=== PATIENT | female | born 1940 | race Caucasian/White ===

== ENCOUNTER 2023-01-31 05:51 | Day surgery (SDC) | payer MEDICARE, BC ==
[~2023-01-31] VITALS: Ht 162.6 cm; Wt 87.2 kg
[2023-01-31 06:10] VITALS: BP 142/73
[2023-01-31] MEDS ORDERED: MIDAZolam 1 MG/ML 5ML VIAL ONE (06:36)
[2023-01-31] MEDS ORDERED: fentaNYL/PF 50MCG/1 ML 2ML syringe ONE (06:36)
[2023-01-31] MEDS ORDERED: LIDOcaine Viscous 15ml cup ONE (06:36)
[2023-01-31] MEDS ORDERED: LOSA-416 PO (06:43)
[2023-01-31] MEDS ORDERED: PANT-47 PO (06:43)
[2023-01-31] MEDS ORDERED: CHOL400C2 (06:43)
[2023-01-31] MEDS ORDERED: OXYB5TAB16 PO (06:43)
[2023-01-31] MEDS ORDERED: ATOR20TA66 PO (06:43)
[2023-01-31] MEDS ORDERED: RALO60TA13 PO (06:43)
[2023-01-31 07:25] VITALS: BP 139/55
[2023-01-31 07:35] VITALS: BP 137/68
[2023-01-31 07:45] VITALS: BP 149/74
[2023-01-31 07:55] VITALS: BP 140/74
== END 2023-01-31 08:00 | disposition home or self-care (01) ==
LOC: GI LAB 05:51
PROVIDERS: ATTEND Surgery
DX: K44.9 Diaphragmatic hernia without obstruction or gangrene (principal); I10 Essential (primary) hypertension; Z87.442 Personal history of urinary calculi; Z79.899 Other long term (current) drug therapy
CPT/HCPCS: 43235; G0500; J2250; J3010; J7030; Z7512; 99152; A4620

== ENCOUNTER 2023-03-16 05:31 | Inpatient (IN) | payer MEDICARE, BC ==
[2023-03-15 14:09] LABS: BASOPHILS # (AUTO) 0.1 X10'3 (0-0.2); BASOPHILS % (AUTO) 0.7 % (0-1); EOSINOPHILS # (AUTO) 0.1 X10'3 (0-0.9); EOSINOPHILS % (AUTO) 1.6 % (0-6); LYMPHOCYTES # (AUTO) 1.8 X10'3 (1.1-4.8); LYMPHOCYTES % (AUTO) 23.8 % (21-51); MEAN CORPUSCULAR HEMOGLOBIN 32.2 PG (27.0-31.0); MEAN CORPUSCULAR HGB CONC 33.2 g/dL (33.0-36.5); MEAN CORPUSCULAR VOLUME 96.8 FL (78-98); MEAN PLATELET VOLUME 9.2 FL (7.4-10.4); MONOCYTES # (AUTO) 0.6 X10'3 (0-0.9); MONOCYTES % (AUTO) 8.3 % (2-12); NEUTROPHILS # (AUTO) 4.9 X10'3 (1.8-7.7); NEUTROPHILS % (AUTO) 65.6 % (42-75); PRE OP HEMATOCRIT 36.9 % (35.0-45.0); PRE OP HEMOGLOBIN 12.3 g/dL (12.0-16.0); PRE OP PLATELET COUNT 218 X10'3 (140-440); PRE OP WHITE BLOOD COUNT 7.5 10'3 (4.8-10.8); RED BLOOD COUNT 3.82 X10'6 (4.20-5.60); RED CELL DISTRIBUTION WIDTH 13.5 % (11.5-14.5)
[2023-03-15 14:18] LABS: PRE OP PROTIME 10.9 SECONDS (9.0-12.0)
[2023-03-15 14:19] LABS: ALBUMIN 3.9 G/DL (3.4-5.0); ALBUMIN/GLOBULIN RATIO 1.1 (1.1-1.5); ALKALINE PHOSPHATASE 36 IU/L (46-116); BLOOD UREA NITROGEN 26 MG/DL (7-18); BUN/CREATININE RATIO 20.5 (10.0-20.0); CALCIUM 9.4 MG/DL (8.5-10.1); CHLORIDE 105 MMOL/L (99-107); CREATININE 1.27 MG/DL (0.40-0.90); PRE OP ALT 21 U/L (30-65); PRE OP ANION GAP 9 (8-16); PRE OP AST 24 U/L (10-37); PRE OP BILIRUB, TOTAL 0.5 MG/DL (0.0-1.0); PRE OP GLUCOSE 95 MG/DL (70-104); PRE OP POTASSIUM 4.3 MMOL/L (3.4-5.1); PRE OP SODIUM 140 MMOL/L (135-145); TOTAL CARBON DIOXIDE 26.1 MMOL/L (24-32); TOTAL PROTEIN 7.6 G/DL (6.4-8.2); eCRCL 29 ML/MIN; eGFR 40 ML/MIN
[2023-03-15 14:30] LABS: BILIRUBIN,URINE NEGATIVE (Neg); CLARITY,URINE CLEAR (Clear); COLOR,URINE YELLOW (Yellow); GLUCOSE, URINE NEGATIVE (Neg); KETONES,URINE NEGATIVE (Neg); LEUKOCYTE ESTERASE ,URINE NEGATIVE (Neg); NITRITES, URINE NEGATIVE (Neg); OCCULT BLOOD,URINE NEGATIVE (Neg); PROTEIN,URINE NEGATIVE (Neg); UROBILINOGEN,URINE 0.2 E.U/dL (0.2-1.0)
[2023-03-15 14:31] LABS: HEMOGLOBIN A1C 5.7 % (4.5-6.2)
[2023-03-15 15:00] LABS: UA COLLECTION TYPE CLN CATCH MIDSTREAM
[~2023-03-16] VITALS: Ht 154.9 cm; Wt 99.4 kg
[2023-03-16] VITALS (29 sets, daily range): BP systolic 65–176; BP diastolic 33–85; PULSE 59–132; RESP 10–15; TEMP 94.3–97; O2SAT 96–100
[~2023-03-16 05:31] MED LIST: ASPI-1265 PO; ATOR40TA71 PO; CHOL400C2; DEXTROSE 15 GM of carb/4 tabs (each vial/BOTTLE has 4 tablets) PO PRN; DOCUMENT DATE & TIME OF BETA-BLOCKER PO ONE; FERR324T3 PO; Insulin Reg/NS 100units/100mL 100 ML IV SCH; LORazepam 2 mg/ml vial IV ONE; LOSA25TA41 PO; METO-395 PO; MULT-1085 PO; OSC500T PO; OXYB5TAB16 PO; PANT-47 PO; RALO60TA13 PO; UBID100C16 PO; albuterol 2.5 MG/3 ML nebule NEB PRN; cefazolin 2gm/D5W 100mL 100 ML IV ONE; dextrose 50%-water 50ml dispensing syringe IV PRN; famotidine 20mg tablet PO ONE; glucagon, human recombinant 1mg kit SUBCUT PRN; metoprolol tartrate 12.5mg (1/2 tablet) PO ONE; mupirocin 2% nasal ointment 1gm UD NS ONE; ringers solution, lacted 1,000 ML IV SCH
[2023-03-16] MEDS ORDERED: ceFAZolin 1000mg inj ONE ×6 (07:29→18:37)
[2023-03-16] MEDS ORDERED: BUPIVAcaine 0.5% inj/PF 30 ML ONE (07:29)
[2023-03-16] MEDS ORDERED: epiNEPHrine 1 mg/ml inj ONE ×2 (07:29→18:50)
[2023-03-16] MEDS ORDERED: epiNEPHrine 1 MG/ML 1 ml ampule **BRONCH ONLY SQ ONE (07:30)
[2023-03-16] MEDS ORDERED: BUPIVAcaine 0.5% inj/PF 30 ml vial IJ ONE (07:30)
[2023-03-16] MEDS ORDERED: VANCOMYCIN 1,500MG inj. 1,500 MG in normal saline 500ml IV soln 300 ML IV ONE (07:45)
[2023-03-16] MEDS ORDERED: nitroGLYCERIN in D5W 50mg/250ml (Tridil) infusion IV ONE (07:46)
[2023-03-16] MEDS ORDERED: isoflurane 100ml inhalation liquid IH ONE (07:46)
[2023-03-16] MEDS ORDERED: NORepinephrine 8 MG in NS 250 ML BAG (32 mcg/ml) IV ONE (07:46)
[2023-03-16] MEDS ORDERED: protamine sulf. 10mg/ml inj. IV ONE (07:46)
[2023-03-16] MEDS ORDERED: heparin 1,000 units/ml 10ml inj ONE ×2 (07:46→08:00)
[2023-03-16] MEDS ORDERED: LIDOcaine 2% (20mg/ml) 5ml vial ONE ×2 (07:46→07:51)
[2023-03-16] MEDS ORDERED: MIDAZolam 1mg/ml 10ml vial ONE (07:47)
[2023-03-16] MEDS ORDERED: rocuronium 10mg/ml inj IV ONE ×7 (07:51→19:23)
[2023-03-16] MEDS ORDERED: 0.9 % SODIUM CHLORIDE 10 ML VIAL ONE ×3 (07:51→18:37)
[2023-03-16] MEDS ORDERED: phenylephrine 10mg/ml inj. -priapism dosing ONE (07:51)
[2023-03-16] MEDS ORDERED: dexamethasone sod phosphate 4mg/ml inj. ONE (07:51)
[2023-03-16] MEDS ORDERED: propofol inj 20 ML IV ONE (07:51)
[2023-03-16] MEDS ORDERED: ondansetron/PF 4mg/2ml inj ONE (07:51)
[2023-03-16] MEDS ORDERED: SUfentanil 50mcg/ml 1ml amp IV ONE (07:51)
[2023-03-16] MEDS ORDERED: midazolam 1 mg/ML 2ml injection IV PRN (07:55)
[2023-03-16] MEDS ORDERED: FENTANYL-0.9 % NACL/PF 100 ML IV PRN (07:55)
[2023-03-16] MEDS ORDERED: fentaNYL/PF 50MCG/1 ML 2ML syringe IV PRN (07:55)
[2023-03-16] MEDS ORDERED: propofol 1000mg/100ml bottle 100 ML IV SCH (07:55)
[2023-03-16] MEDS ORDERED: LIDOcaine 2% (20 mg/ml) 5ml cardiac syringe ONE (08:00)
[2023-03-16] MEDS ORDERED: heparin 10,000 units/1 ML INJ ONE ×2 (08:00)
[2023-03-16] MEDS ORDERED: epiNEPHrine 0.1mg/ml 10ml syringe ONE (08:00)
[2023-03-16] MEDS ORDERED: methylPREDNISolone sod succ 1000mg vial ONE (08:00)
[2023-03-16] MEDS ORDERED: calcium chloride 100 MG/1 ML inj IV ONE (08:00)
[2023-03-16] MEDS ORDERED: mannitol 12.5gm/50mL VIAL IV ONE (08:00)
[2023-03-16] MEDS ORDERED: sod chloride 0.9% 10ml flush syringe IV ONE (08:00)
[2023-03-16] MEDS ORDERED: aminocaproic acid 250 MG/1 ML inj. ONE (08:00)
[2023-03-16] MEDS ORDERED: NORepinephrine 1 mg/ml inj IV ONE (08:00)
[2023-03-16] MEDS ORDERED: MAGNESIUM SULFATE 4 MEQ/ML (5gm/10ml) injection ONE (08:00)
[2023-03-16] MEDS ORDERED: albumin (human) 25% 100 ML IV solution IV ONE (08:00)
[2023-03-16] MEDS ORDERED: sodium bicarbonate (8.4%) 1 mEq/ml syringe ONE (08:00)
[2023-03-16] MEDS ORDERED: albumin (Human) 5% 250ml 250 ML IV ONE ×2 (09:06→11:12)
[2023-03-16 09:10] LABS: ABG BASE EXCESS -0.2 mmol/L (-2.0-2.0); ABG HCO3 21.6 mmol/L (22.0-26.0); ABG OXYGEN SATURATION 99.4 % (94-97); ABG PCO2 26.7 mmHg (32.0-45.0); ABG PH 7.526 (7.350-7.450); ABG PO2 242.7 mmHg (75.0-100.0); CL (ABG) 107 mmol/L (99-107); FCOHb 0.3 % (0.0-3.9); FHHb 0.6 % (0.0-5.0); FMetHb 0.3 % (0.0-1.5); FO2Hb 98.8 % (94-97); GLUCOSE (ABG) 117 mg/dl (70-104); IONIZED CA (ABG) 1.11 mmol/L (1.10-1.30); K (ABG) 3.9 mmol/L (3.5-5.1); TOTAL HEMOGLOBIN 10.7 G/dl (12.0-16.0)
[2023-03-16 09:48] LABS: ABG BASE EXCESS -1.9 mmol/L (-2.0-2.0); ABG HCO3 20.8 mmol/L (22.0-26.0); ABG OXYGEN SATURATION 99.7 % (94-97); ABG PCO2 28.6 mmHg (32.0-45.0); ABG PH 7.479 (7.350-7.450); ABG PO2 389.6 mmHg (75.0-100.0); CL (ABG) 106 mmol/L (99-107); FCOHb 0.1 % (0.0-3.9); FHHb 0.3 % (0.0-5.0); FMetHb 0.3 % (0.0-1.5); FO2Hb 99.3 % (94-97); GLUCOSE (ABG) 115 mg/dl (70-104); K (ABG) 3.8 mmol/L (3.5-5.1); TOTAL HEMOGLOBIN 10.3 G/dl (12.0-16.0)
[2023-03-16 10:58] LABS: ABG BASE EXCESS -2.3 mmol/L (-2.0-2.0); ABG HCO3 19.2 mmol/L (22.0-26.0); ABG OXYGEN SATURATION 99.8 % (94-97); ABG PCO2 23.3 mmHg (32.0-45.0); ABG PH 7.533 (7.350-7.450); ABG PO2 471.3 mmHg (75.0-100.0); CL (ABG) 108 mmol/L (99-107); FCOHb 0.1 % (0.0-3.9); FHHb 0.2 % (0.0-5.0); FMetHb 0.3 % (0.0-1.5); FO2Hb 99.4 % (94-97); GLUCOSE (ABG) 124 mg/dl (70-104); IONIZED CA (ABG) 1.08 mmol/L (1.10-1.30); K (ABG) 3.6 mmol/L (3.5-5.1)
[2023-03-16 11:00] LABS: ACTIVATED CLOTTING TIME 146 SEC (101-148)
[2023-03-16] MEDS ORDERED: potassium Cl 40MEQ/1/2NS 520ml 520 ML IV PRN (11:20)
[2023-03-16] MEDS ORDERED: bisacodyl 10mg suppository rectal RC PRN (11:20)
[2023-03-16] MEDS ORDERED: Insulin Reg/NS 100units/100mL 100 ML IV SCH (11:20)
[2023-03-16] MEDS ORDERED: sodium phosphate inj. 15 MMOL in dextrose 5%-water 250 ML IV PRN (11:20)
[2023-03-16] MEDS ORDERED: sodium phosphate inj. 30 MMOL in dextrose 5%-water 250 ML IV PRN (11:20)
[2023-03-16] MEDS ORDERED: magnesium hydroxide 30ml (MOM) UD suspension PO PRN (11:20)
[2023-03-16] MEDS ORDERED: dextrose 50%-water 50ml dispensing syringe IV PRN (11:20)
[2023-03-16] MEDS ORDERED: insulin glargine (Lantus) pen - multi-dose SQ PRN (11:20)
[2023-03-16] MEDS ORDERED: mineral oil 133ml enema RC PRN (11:20)
[2023-03-16] MEDS ORDERED: niCARDipine-NS 40mg/200ml IVPB 200 ML IV PRN (11:20)
[2023-03-16] MEDS ORDERED: HYDROcodone/acetaminophen 10/325mg tab PO PRN (11:20)
[2023-03-16] MEDS ORDERED: ondansetron/PF 4mg/2ml inj IV PRN (11:20)
[2023-03-16] MEDS ORDERED: potassium Cl 20 mEq SR tablet PO PRN (11:20)
[2023-03-16] MEDS ORDERED: magnesium 4gm in 100ml NS 100 ML IV PRN (11:20)
[2023-03-16] MEDS ORDERED: metoclopramide 5 mg/ml inj IV PRN (11:20)
[2023-03-16] MEDS ORDERED: potassium CL 10mEq/100ml bag 100 ML IV PRN (11:20)
[2023-03-16] MEDS ORDERED: potassium Cl 40MEQ/270ML bag 250 ML IV PRN (11:20)
[2023-03-16] MEDS ORDERED: acetaminophen 325mg tablet PO PRN (11:20)
[2023-03-16] MEDS ORDERED: morphine 4 MG/ML inj SYRINge IV PRN (11:20)
--- NOTE | 2023-03-16 12:00 | NUR ---
Received to room , accompanied by Tommy Pitt, PAC and surgical crew. Placed on ventilator, to assistant to the vice president, arterial line and PA line pressure zeroed & monitored. Chest tubes to suction at 20 cm. Napoles cath to gravity drainage. Dressings are dry and intact. See assessment record. All vasoactive drugs are infusing via central line.
[2023-03-16] MEDS: sodium chloride 0.45% 1,000 ML IV SCH (12:07)
[2023-03-16 12:12] LABS: ABG BASE EXCESS -2.3 mmol/L (-2.0-2.0); ABG HCO3 20.4 mmol/L (22.0-26.0); ABG PH (T) 7.523 (7.350-7.450); ABG PO2 (T) 417.3 mmHg (75.0-100.0); FCOHb 0.2 % (0.0-3.9); FMetHb 0.2 % (0.0-1.5); FO2Hb 98.6 % (94-97); MODE VENT - SIMV; PATIENT TEMPERATURE 34.8; PEEP 5 cm H2O; RESPIRATORY RATE 14 b/min; TIDAL VOLUME 400 mL; TOTAL HEMOGLOBIN 8.5 G/dl (12.0-16.0)
[2023-03-16] MEDS: albumin (Human) 5% 250ml 250 ML IV PRN ×4 (12:41→22:53)
[2023-03-16] MEDS: gabapentin 300mg capsule PO SCH ×2 (12:41→22:22)
[2023-03-16 12:43] LABS: APTT 33 SECONDS (22-32); INR 1.3 INR; PROTHROMBIN TIME 13.8 SECONDS (9.0-12.0)
[2023-03-16 12:46] LABS: ALANINE AMINOTRANSFERASE 14 U/L (12-78); ALBUMIN 2.5 G/DL (3.4-5.0); ALBUMIN/GLOBULIN RATIO 1.3 (1.1-1.5); ALKALINE PHOSPHATASE 25 IU/L (46-116); ANION GAP 6 (8-16); ASPARTATE AMINO TRANSFERASE 21 U/L (10-37); BILIRUBIN,TOTAL 0.4 MG/DL (0.1-1.0); BLOOD UREA NITROGEN 22 MG/DL (7-18); BUN/CREATININE RATIO 24.2 (10.0-20.0); CREATININE 0.91 MG/DL (0.40-0.90); GLUCOSE 124 MG/DL (70-104); MAGNESIUM 1.5 MG/DL (1.5-2.4); PHOSPHORUS 2.2 MG/DL (2.3-4.5); POTASSIUM 3.4 MMOL/L (3.5-5.1); SODIUM 141 MMOL/L (135-145); TOTAL CARBON DIOXIDE 22.6 MMOL/L (24-32); TOTAL PROTEIN 4.4 G/DL (6.4-8.2); eCRCL 35 ML/MIN; eGFR 59 ML/MIN
[2023-03-16 12:48] LABS: BASOPHILS % (AUTO) 0.5 % (0-1); EOSINOPHILS # (AUTO) 0.2 X10'3 (0-0.9); EOSINOPHILS % (AUTO) 2.2 % (0-6); HEMATOCRIT 23.4 % (35.0-45.0); HEMOGLOBIN 7.8 g/dl (12.0-16.0); LYMPHOCYTES # (AUTO) 1.5 X10'3 (1.1-4.8); LYMPHOCYTES % (AUTO) 20.8 % (21-51); MEAN CORPUSCULAR HEMOGLOBIN 32.3 PG (27.0-31.0); MEAN CORPUSCULAR HGB CONC 33.5 g/dL (33.0-36.5); MEAN CORPUSCULAR VOLUME 96.3 FL (78-98); MEAN PLATELET VOLUME 8.2 FL (7.4-10.4); MONOCYTES # (AUTO) 0.4 X10'3 (0-0.9); MONOCYTES % (AUTO) 6.1 % (2-12); NEUTROPHILS # (AUTO) 4.9 X10'3 (1.8-7.7); NEUTROPHILS % (AUTO) 70.4 % (42-75); PLATELET COUNT 159 X10'3 (140-440); RED BLOOD COUNT 2.43 X10'6 (4.20-5.60)
[2023-03-16 12:55] LABS: CALCIUM 6.9 MG/DL (8.5-10.1); CHLORIDE 112 MMOL/L (99-107)
--- NOTE | 2023-03-16 13:50 | NUR ---
Nutrition consult: Per EMR pt remains intubated s/p CABG x 2 today. Pt would benefit from post CABG nutrition therapy education as appropriate following extubation. Will continue to follow. Addendum: 03/16/23 at [address] Amended: Links added.
--- NOTE | 2023-03-16 14:56 | NUR ---
Called Dr Chapman and reported 350 mL out of chest tube in 20 min period. Coags, Hemogram ordered.
[2023-03-16 15:10] LABS: MEAN CORPUSCULAR HEMOGLOBIN 32.3 PG (27.0-31.0); MEAN CORPUSCULAR HGB CONC 33.5 g/dL (33.0-36.5); MEAN CORPUSCULAR VOLUME 96.5 FL (78-98); MEAN PLATELET VOLUME 7.6 FL (7.4-10.4); PLATELET COUNT 171 X10'3 (140-440); RED BLOOD COUNT 2.12 X10'6 (4.20-5.60); RED CELL DISTRIBUTION WIDTH 13.2 % (11.5-14.5); WHITE BLOOD COUNT 13.1 X10'3 (4.5-11.0)
[2023-03-16] MEDS ORDERED: potassium Cl 40MEQ/270ML bag 250 ML IV ONE ×2 (15:10→17:10)
[2023-03-16] MEDS ORDERED: sodium phosphate inj. 15 MMOL in dextrose 5%-water 250 ML IV ONE (15:10)
[2023-03-16 15:16] LABS: HEMATOCRIT 20.5 % (35.0-45.0); HEMOGLOBIN 6.9 g/dl (12.0-16.0)
--- NOTE | 2023-03-16 15:17 | NUR ---
Called Dr Chapman and reported that pt was hypotensive with BP down to 65/33 (43). Currently infusing Albumin and pt responsive to volume. Report CO/CI and SV Reported Hgb 6.8, coags pending. 2 units of LRPC ordered.
[2023-03-16 16:00] LABS: APTT 29 SECONDS (22-32); FIBRINOGEN 174 MG/DL (177-424); INR 1.3 INR; PROTHROMBIN TIME 13.6 SECONDS (9.0-12.0)
--- NOTE | 2023-03-16 16:32 | NUR ---
Called Dr Chapman. Reported that the 2 units LRPC have finished infusing, reported results of Coag study, pt's BP remains labile, she is currently hyperdynamic and CO 11.6. One unit of platelets ordered.
--- NOTE | 2023-03-16 16:50 | NUR ---
Called Dr Chapman and reported that pt is continuing to have high output from chest tube. He stated that he is coming in .
[2023-03-16 17:07] LABS: ABG BASE EXCESS -11.4 mmol/L (-2.0-2.0); ABG HCO3 16.1 mmol/L (22.0-26.0); ABG OXYGEN SATURATION 97.3 % (94-97); ABG PCO2 (T) 41.2 mmHg (32.0-45.0); ABG PH (T) 7.205 (7.350-7.450); ABG PO2 (T) 119.2 mmHg (75.0-100.0); FCOHb 0.2 % (0.0-3.9); FHHb 2.7 % (0.0-5.0); FMetHb 0.2 % (0.0-1.5); FO2Hb 96.9 % (94-97); MODE VENT - SIMV; PEEP 5 cm H2O; RESPIRATORY RATE 10 b/min; TIDAL VOLUME 400 mL; TOTAL HEMOGLOBIN 10.4 G/dl (12.0-16.0)
--- NOTE | 2023-03-16 17:15 | NUR ---
Pt became mendez with HR 28 bpm. LINDY Landon performed brief compressions, approx 30 secs. 0.1 mg Epinephrine pushed, pacer turned on. Chest tube output has increased, pt hypertensive.
--- NOTE | 2023-03-16 18:00 | NUR ---
Pt out to CVOR with Dr Loyd.
--- NOTE | 2023-03-16 18:15 | NUR ---
Problems reprioritized. Patient report given, questions answered & plan of care reviewed with RICHIE Sanchez.
--- NOTE | 2023-03-16 18:30 | NUR ---
Patient in room CICU 2014. I have received report from Tyler QUIROZ and had the opportunity to ask questions and assume patient care. Pt taken back to CVOR by Dr. Loyd and OR crew.
[2023-03-16] MEDS ORDERED: albumin (Human) 5% 250ml 500 ML IV ONE (18:42)
[2023-03-16 18:47] LABS: ABG BASE EXCESS -9.8 mmol/L (-2.0-2.0); ABG OXYGEN SATURATION 99.9 % (94-97); ABG PCO2 34.4 mmHg (32.0-45.0); ABG PH 7.285 (7.350-7.450); ABG PO2 399.5 mmHg (75.0-100.0); CL (ABG) 119 mmol/L (99-107); FCOHb 1.6 % (0.0-3.9); FHHb 0.1 % (0.0-5.0); FMetHb 0.3 % (0.0-1.5); GLUCOSE (ABG) 143 mg/dl (70-104); IONIZED CA (ABG) 0.84 mmol/L (1.10-1.30)
[2023-03-16] MEDS ORDERED: metoprolol tartrate 1mg/ml inj IV ONE (19:01)
[2023-03-16 19:09] LABS: ABG BASE EXCESS -6.8 mmol/L (-2.0-2.0); ABG OXYGEN SATURATION 99.7 % (94-97); ABG PCO2 39.8 mmHg (32.0-45.0); ABG PH 7.297 (7.350-7.450); ABG PO2 467.7 mmHg (75.0-100.0); CL (ABG) 114 mmol/L (99-107); FCOHb 1.9 % (0.0-3.9); FHHb 0.3 % (0.0-5.0); FMetHb 0.3 % (0.0-1.5); FO2Hb 97.5 % (94-97); GLUCOSE (ABG) 170 mg/dl (70-104); IONIZED CA (ABG) 0.69 mmol/L (1.10-1.30); K (ABG) 5.4 mmol/L (3.5-5.1)
[2023-03-16] MEDS ORDERED: esmolol/sodium cl bag 250 ML IV ONE (19:14)
[2023-03-16] MEDS ORDERED: esmolol inj. 10 ML IV ONE ×3 (19:14→19:26)
[2023-03-16 19:22] LABS: ABG BASE EXCESS VENOUS -2.5 mmol/L (-2.0 - 2.0); ABG HCO3 VENOUS 23.3 mmol/L (21.0-28.0); ABG OXYGEN SATURATION VENOUS 81.7 % (75 - 99 %); ABG PCO2 VENOUS 45.2 mmHg (38.0-51.0); ABG PO2 VENOUS 40.5 mmHg (25.0-35.0); CL (ABG) 112 mmol/L (99-107); FCOHb VENOUS 1.1 % (0.0- 3.9); FMetHb VENOUS 0.3 % (0.0 - 0.5); FO2Hb VENOUS 80.6 %; GLUCOSE (ABG) 148 mg/dl (70-104); K (ABG) 4.6 mmol/L (3.5-5.1); TOTAL HEMOGLOBIN 7.5 G/dl (12.0-16.0)
[2023-03-16 19:54] LABS: ABG BASE EXCESS -2.6 mmol/L (-2.0-2.0); ABG OXYGEN SATURATION 99.4 % (94-97); ABG PCO2 30.6 mmHg (32.0-45.0); ABG PH 7.454 (7.350-7.450); ABG PO2 208.1 mmHg (75.0-100.0); CL (ABG) 113 mmol/L (99-107); FCOHb 1.1 % (0.0-3.9); FHHb 0.6 % (0.0-5.0); FMetHb 0.3 % (0.0-1.5); GLUCOSE (ABG) 128 mg/dl (70-104); IONIZED CA (ABG) 0.87 mmol/L (1.10-1.30); K (ABG) 4.2 mmol/L (3.5-5.1)
[2023-03-16 19:57] LABS: ACTIVATED CLOTTING TIME 150 SEC (101-148)
[2023-03-16 20:16] LABS: ABG HCO3 23.2 mmol/L (22.0-26.0); ABG OXYGEN SATURATION 99.1 % (94-97); ABG PCO2 32.2 mmHg (32.0-45.0); ABG PH 7.476 (7.350-7.450); ABG PO2 200.1 mmHg (75.0-100.0); CL (ABG) 111 mmol/L (99-107); FCOHb 0.3 % (0.0-3.9); FHHb 0.9 % (0.0-5.0); FMetHb 0.3 % (0.0-1.5); FO2Hb 98.5 % (94-97); GLUCOSE (ABG) 126 mg/dl (70-104); TOTAL HEMOGLOBIN 9.2 G/dl (12.0-16.0)
--- NOTE | 2023-03-16 20:45 | NUR ---
Received to room 2015a, accompanied by Vale Collins and surgical crew. Placed on ventilator, to monitoring tech, arterial line and PA line pressure zeroed & monitored. Chest tubes to suction at 20 cm. Napoles cath to gravity drainage. Dressings are dry and intact. See assessment record. All vasoactive drugs are infusing via central line.
[2023-03-16] MEDS: raloxifene 60mg tablet PO SCH (21:00)
[2023-03-16] MEDS ORDERED: atorvastatin 10mg tablet PO SCH (21:00)
[2023-03-16] MEDS: propofol 1000mg/100ml bottle 100 ML IV SCH (21:04)
[2023-03-16 21:05] LABS: BASOPHILS % (AUTO) 0.2 % (0-1); EOSINOPHILS % (AUTO) 0.3 % (0-6); HEMATOCRIT 26.3 % (35.0-45.0); LYMPHOCYTES # (AUTO) 0.3 X10'3 (1.1-4.8); LYMPHOCYTES % (AUTO) 4.9 % (21-51); MEAN CORPUSCULAR HEMOGLOBIN 29.8 PG (27.0-31.0); MEAN CORPUSCULAR HGB CONC 34.4 g/dL (33.0-36.5); MEAN CORPUSCULAR VOLUME 86.8 FL (78-98); MEAN PLATELET VOLUME 6.7 FL (7.4-10.4); MONOCYTES # (AUTO) 0.4 X10'3 (0-0.9); MONOCYTES % (AUTO) 5.9 % (2-12); NEUTROPHILS # (AUTO) 6.1 X10'3 (1.8-7.7); NEUTROPHILS % (AUTO) 88.7 % (42-75); PLATELET COUNT 155 X10'3 (140-440); RED BLOOD COUNT 3.03 X10'6 (4.20-5.60); RED CELL DISTRIBUTION WIDTH 18.2 % (11.5-14.5); WHITE BLOOD COUNT 6.9 X10'3 (4.5-11.0)
[2023-03-16 21:13] LABS: ALBUMIN 2.3 G/DL (3.4-5.0); ANION GAP 9 (8-16); BLOOD UREA NITROGEN 15 MG/DL (7-18); BUN/CREATININE RATIO 15.5 (10.0-20.0); CALCIUM 7.8 MG/DL (8.5-10.1); CHLORIDE 115 MMOL/L (99-107); CREATININE 0.97 MG/DL (0.40-0.90); GLUCOSE 114 MG/DL (70-104); PHOSPHORUS 2.3 MG/DL (2.3-4.5); SODIUM 150 MMOL/L (135-145); TOTAL CARBON DIOXIDE 25.6 MMOL/L (24-32); eCRCL 33 ML/MIN; eGFR 55 ML/MIN
[2023-03-16] MEDS: sennosides/docusate sodium tablet PO SCH (21:49)
[2023-03-16] MEDS: nitroGLYCERIN-Tridil 50MG/D5W 250 ML IV SCH (21:51)
[2023-03-16 22:16] LABS: ABG BASE EXCESS 1.6 mmol/L (-2.0-2.0); ABG HCO3 25.7 mmol/L (22.0-26.0); ABG OXYGEN SATURATION 98.7 % (94-97); ABG PCO2 (T) 35.2 mmHg (32.0-45.0); ABG PH (T) 7.473 (7.350-7.450); ABG PO2 (T) 262.5 mmHg (75.0-100.0); FCOHb 0.3 % (0.0-3.9); FHHb 1.3 % (0.0-5.0); FMetHb 0.2 % (0.0-1.5); FO2Hb 98.2 % (94-97); MODE simv; PATIENT TEMPERATURE 35.1; PEEP 5 cm H2O; RESPIRATORY RATE 14 b/min; TIDAL VOLUME 400 mL; TOTAL HEMOGLOBIN 10.1 G/dl (12.0-16.0)
[2023-03-16] MEDS: aspirin 81mg tab.chew PO SCH (22:22)
[2023-03-16] MEDS: mupirocin 2% nasal ointment 1gm UD NS SCH (22:22)
[2023-03-16] MEDS: ferrous gluconate 324mg tablet PO SCH (22:22)
[2023-03-16] MEDS: ceFAZolin/D5W- 1GM premix 50 ML IV SCH (22:23)
[2023-03-16] MEDS: vancomycin/NS 1 GM ADD-VANTAGE 250 ML IV SCH (22:23)
[2023-03-17] VITALS (38 sets, daily range): BP systolic 96–142; BP diastolic 42–59; PULSE 60–110; RESP 10–19; TEMP 99.2; O2SAT 89–98
[2023-03-17] MEDS: albumin (Human) 5% 250ml 250 ML IV PRN ×3 (01:48→18:27)
[2023-03-17] MEDS: ceFAZolin/D5W- 1GM premix 50 ML IV SCH ×3 (02:23→16:38)
[2023-03-17 02:35] LABS: BASOPHILS % (AUTO) 0 % (0-1); EOSINOPHILS % (AUTO) 0 % (0-6); HEMATOCRIT 23.7 % (35.0-45.0); LYMPHOCYTES # (AUTO) 0.5 X10'3 (1.1-4.8); LYMPHOCYTES % (AUTO) 5.1 % (21-51); MEAN CORPUSCULAR HEMOGLOBIN 29.5 PG (27.0-31.0); MEAN CORPUSCULAR HGB CONC 33.9 g/dL (33.0-36.5); MEAN CORPUSCULAR VOLUME 86.8 FL (78-98); MEAN PLATELET VOLUME 7.2 FL (7.4-10.4); MONOCYTES # (AUTO) 0.6 X10'3 (0-0.9); MONOCYTES % (AUTO) 6.7 % (2-12); NEUTROPHILS # (AUTO) 8.2 X10'3 (1.8-7.7); NEUTROPHILS % (AUTO) 88.2 % (42-75); PLATELET COUNT 150 X10'3 (140-440); RED BLOOD COUNT 2.73 X10'6 (4.20-5.60); RED CELL DISTRIBUTION WIDTH 18.7 % (11.5-14.5); WHITE BLOOD COUNT 9.3 X10'3 (4.5-11.0)
[2023-03-17 02:42] LABS: APTT 34 SECONDS (22-32); FIBRINOGEN 121 MG/DL (177-424); INR 1.3 INR
[2023-03-17 02:47] LABS: ALANINE AMINOTRANSFERASE 31 U/L (12-78); ALBUMIN/GLOBULIN RATIO 1.6 (1.1-1.5); ALKALINE PHOSPHATASE 17 IU/L (46-116); ANION GAP 8 (8-16); ASPARTATE AMINO TRANSFERASE 52 U/L (10-37); BILIRUBIN,TOTAL 1.8 MG/DL (0.1-1.0); BLOOD UREA NITROGEN 16 MG/DL (7-18); BUN/CREATININE RATIO 15.8 (10.0-20.0); CALCIUM 7.7 MG/DL (8.5-10.1); CHLORIDE 117 MMOL/L (99-107); CREATININE 1.01 MG/DL (0.40-0.90); GLUCOSE 151 MG/DL (70-104); MAGNESIUM 2.7 MG/DL (1.5-2.4); PHOSPHORUS 2.1 MG/DL (2.3-4.5); SODIUM 152 MMOL/L (135-145); TOTAL CARBON DIOXIDE 26.6 MMOL/L (24-32); TOTAL PROTEIN 4.9 G/DL (6.4-8.2); TRIGLYCERIDES 21 MG/DL (20-135); eCRCL 32 ML/MIN; eGFR 52 ML/MIN
[2023-03-17 03:05] LABS: ANISOCYTOSIS 2+; PLATELET ESTIMATE NORMAL
[2023-03-17 03:14] LABS: HYPOCHROMASIA 1+; POLYCHROMASIA FEW
[2023-03-17] MEDS: Neutra Phos packet PO PRN (03:14)
[2023-03-17] MEDS: potassium Cl 20mEq/100mL bag 100 ML IV PRN ×2 (03:14→04:04)
[2023-03-17] MEDS ORDERED: amiodarone 150mg/dext, iso-os 100 ML IV ONE ×2 (03:41→03:45)
[2023-03-17] MEDS: morphine 2 MG/ML inj. syringe IV PRN ×3 (03:46→15:20)
[2023-03-17] MEDS ORDERED: NORepinephrine 8mg/ 250ml NS 250 ML IV ONE (03:50)
[2023-03-17] MEDS: amiodarone/D5 360MG/200ML BAG 200 ML IV SCH ×4 (03:55→21:56)
[2023-03-17 04:00] LABS: ABG BASE EXCESS -1.6 mmol/L (-2.0-2.0); ABG HCO3 23.7 mmol/L (22.0-26.0); ABG OXYGEN SATURATION 92.7 % (94-97); ABG PCO2 (T) 40.7 mmHg (32.0-45.0); ABG PO2 (T) 63.5 mmHg (75.0-100.0); ALLEN'S TEST Modified; FHHb 7.3 % (0.0-5.0); FMetHb 0.1 % (0.0-1.5); FO2Hb 92.6 % (94-97); MODE Vent SIMV-VC; PATIENT TEMPERATURE 36.2; PEEP 5 cm H2O; RESPIRATORY RATE 14 b/min; TIDAL VOLUME 400 mL; TOTAL HEMOGLOBIN 9.1 G/dl (12.0-16.0)
--- NOTE | 2023-03-17 04:00 | NUR ---
The pt began to cough and desat so I suctioned her and got clear thick sputum. Then the pt be began to bare down and not get her tidal volumes on the vent(less than 100), decrease her BP(SBP 60's) and start to mendez down(rate to 40's). The pacer was turned on with good capture. The pt was taken off of the vent and bagged and RT was paged. The pt continued to desat (SpO2 30's) and BP decrease (SBP 30's) Levo was titrated to max and a code was called. The pt went into pulseless Vtac and was shocked at with 150 joules which returned her to a perfusing rhythm and she became hypertensive (SBP 250's) Levo was stopped and nitro started. Dr. Chapman was called and updated, received orders for amio drip with loading dose. Code was cancelled.
--- NOTE | 2023-03-17 06:20 | NUR ---
Problems reprioritized. Patient report given, questions answered & plan of care reviewed with Heather QUIROZ.
[2023-03-17 06:39] LABS: BASOPHILS % (AUTO) 0.1 % (0-1); EOSINOPHILS % (AUTO) 0 % (0-6); HEMATOCRIT 22.4 % (35.0-45.0); HEMOGLOBIN 7.3 g/dl (12.0-16.0); LYMPHOCYTES # (AUTO) 0.3 X10'3 (1.1-4.8); LYMPHOCYTES % (AUTO) 2.6 % (21-51); MEAN CORPUSCULAR HEMOGLOBIN 28.3 PG (27.0-31.0); MEAN CORPUSCULAR HGB CONC 32.8 g/dL (33.0-36.5); MEAN CORPUSCULAR VOLUME 86.4 FL (78-98); MEAN PLATELET VOLUME 7.2 FL (7.4-10.4); MONOCYTES # (AUTO) 0.6 X10'3 (0-0.9); MONOCYTES % (AUTO) 5.5 % (2-12); NEUTROPHILS # (AUTO) 10.6 X10'3 (1.8-7.7); NEUTROPHILS % (AUTO) 91.8 % (42-75); PLATELET COUNT 144 X10'3 (140-440); RED BLOOD COUNT 2.59 X10'6 (4.20-5.60); RED CELL DISTRIBUTION WIDTH 18.8 % (11.5-14.5); WHITE BLOOD COUNT 11.5 X10'3 (4.5-11.0)
[2023-03-17 06:54] LABS: APTT 35 SECONDS (22-32); FIBRINOGEN 143 MG/DL (177-424); INR 1.3 INR; PROTHROMBIN TIME 13.5 SECONDS (9.0-12.0)
[2023-03-17 06:57] LABS: ALANINE AMINOTRANSFERASE 29 U/L (12-78); ALBUMIN 3.1 G/DL (3.4-5.0); ALBUMIN/GLOBULIN RATIO 2.6 (1.1-1.5); ALKALINE PHOSPHATASE 19 IU/L (46-116); ANION GAP 7 (8-16); ASPARTATE AMINO TRANSFERASE 54 U/L (10-37); BILIRUBIN,TOTAL 0.9 MG/DL (0.1-1.0); BLOOD UREA NITROGEN 20 MG/DL (7-18); BUN/CREATININE RATIO 17.5 (10.0-20.0); CALCIUM 7.1 MG/DL (8.5-10.1); CHLORIDE 117 MMOL/L (99-107); CREATININE 1.14 MG/DL (0.40-0.90); GLUCOSE 134 MG/DL (70-104); MAGNESIUM 2.5 MG/DL (1.5-2.4); PHOSPHORUS 2.9 MG/DL (2.3-4.5); POTASSIUM 4.6 MMOL/L (3.5-5.1); SODIUM 149 MMOL/L (135-145); TOTAL CARBON DIOXIDE 25.2 MMOL/L (24-32); TOTAL PROTEIN 4.3 G/DL (6.4-8.2); eCRCL 28 ML/MIN; eGFR 46 ML/MIN
[2023-03-17] MEDS: vancomycin/NS 1 GM ADD-VANTAGE 250 ML IV SCH ×2 (07:48→21:56)
[2023-03-17] MEDS: calcium carbonate 500mg tablet PO SCH (07:48)
[2023-03-17] MEDS: gabapentin 300mg capsule PO SCH ×3 (07:48→21:57)
[2023-03-17] MEDS: pantoprazole 40mg Tablet.DR PO SCH (07:48)
[2023-03-17] MEDS: ferrous gluconate 324mg tablet PO SCH ×2 (07:48→21:58)
[2023-03-17] MEDS: sennosides/docusate sodium tablet PO SCH ×2 (07:48→21:57)
[2023-03-17] MEDS: metoprolol tartrate 12.5mg (1/2 tablet) PO SCH ×2 (07:49→21:58)
[2023-03-17] MEDS: atorvastatin 20mg tablet PO SCH (07:57)
[2023-03-17] MEDS: mupirocin 2% nasal ointment 1gm UD NS SCH ×2 (07:57→21:57)
[2023-03-17] MEDS ORDERED: mineral oil/petrolatum ophthal oint EACHEYE SCH (08:00)
[2023-03-17] MEDS ORDERED: aspirin 81mg tab.chew PO SCH (08:30)
[2023-03-17] MEDS: oxybutynin 5mg tablet PO SCH (08:53)
--- NOTE | 2023-03-17 09:00 | NUR ---
Pt turned side to side. CT drained 350 mL serosanguinous fluid.
[2023-03-17] MEDS ORDERED: NORepinephrine 8mg/ 250ml NS 250 ML IV SCH (10:05)
[2023-03-17] MEDS: NORepinephrine 8mg/ 250ml NS 250 ML IV SCH (10:37)
[2023-03-17 12:55] LABS: BASOPHILS % (AUTO) 0 % (0-1); EOSINOPHILS % (AUTO) 0 % (0-6); HEMATOCRIT 22.6 % (35.0-45.0); HEMOGLOBIN 7.6 g/dl (12.0-16.0); LYMPHOCYTES # (AUTO) 0.6 X10'3 (1.1-4.8); LYMPHOCYTES % (AUTO) 3.3 % (21-51); MEAN CORPUSCULAR HEMOGLOBIN 29.1 PG (27.0-31.0); MEAN CORPUSCULAR HGB CONC 33.5 g/dL (33.0-36.5); MEAN CORPUSCULAR VOLUME 86.8 FL (78-98); MEAN PLATELET VOLUME 7.7 FL (7.4-10.4); MONOCYTES # (AUTO) 1.1 X10'3 (0-0.9); MONOCYTES % (AUTO) 6.3 % (2-12); NEUTROPHILS # (AUTO) 15.8 X10'3 (1.8-7.7); NEUTROPHILS % (AUTO) 90.4 % (42-75); PLATELET COUNT 146 X10'3 (140-440); RED CELL DISTRIBUTION WIDTH 18.8 % (11.5-14.5); WHITE BLOOD COUNT 17.5 X10'3 (4.5-11.0)
[2023-03-17 13:03] LABS: ALBUMIN 3.2 G/DL (3.4-5.0); ANION GAP 10 (8-16); BLOOD UREA NITROGEN 18 MG/DL (7-18); BUN/CREATININE RATIO 15.8 (10.0-20.0); CALCIUM 7.5 MG/DL (8.5-10.1); CHLORIDE 116 MMOL/L (99-107); CREATININE 1.14 MG/DL (0.40-0.90); GLUCOSE 152 MG/DL (70-104); MAGNESIUM 2.4 MG/DL (1.5-2.4); PHOSPHORUS 3.7 MG/DL (2.3-4.5); POTASSIUM 4.6 MMOL/L (3.5-5.1); SODIUM 149 MMOL/L (135-145); TOTAL CARBON DIOXIDE 22.9 MMOL/L (24-32); eCRCL 28 ML/MIN; eGFR 46 ML/MIN
[2023-03-17 14:10] LABS: ABG BASE EXCESS -3.6 mmol/L (-2.0-2.0); ABG HCO3 20.9 mmol/L (22.0-26.0); ABG OXYGEN SATURATION 94.6 % (94-97); ABG PCO2 (T) 34.6 mmHg (32.0-45.0); ABG PH (T) 7.396 (7.350-7.450); ABG PO2 (T) 74.6 mmHg (75.0-100.0); FCOHb 0.3 % (0.0-3.9); FHHb 5.4 % (0.0-5.0); FMetHb 0.3 % (0.0-1.5); MODE VENT - CPAP/PS; PATIENT TEMPERATURE 36.5; PEEP 5 cm H2O; TOTAL HEMOGLOBIN 8.1 G/dl (12.0-16.0)
[2023-03-17 17:34] LABS: BASOPHILS % (AUTO) 0.1 % (0-1); EOSINOPHILS % (AUTO) 0 % (0-6); HEMATOCRIT 22.4 % (35.0-45.0); HEMOGLOBIN 7.4 g/dl (12.0-16.0); LYMPHOCYTES # (AUTO) 0.8 X10'3 (1.1-4.8); LYMPHOCYTES % (AUTO) 3.9 % (21-51); MEAN CORPUSCULAR HGB CONC 33.1 g/dL (33.0-36.5); MEAN CORPUSCULAR VOLUME 87.7 FL (78-98); MONOCYTES # (AUTO) 1.4 X10'3 (0-0.9); MONOCYTES % (AUTO) 6.9 % (2-12); NEUTROPHILS # (AUTO) 17.6 X10'3 (1.8-7.7); NEUTROPHILS % (AUTO) 89.1 % (42-75); PLATELET COUNT 147 X10'3 (140-440); RED BLOOD COUNT 2.56 X10'6 (4.20-5.60); RED CELL DISTRIBUTION WIDTH 19.3 % (11.5-14.5); WHITE BLOOD COUNT 19.7 X10'3 (4.5-11.0)
--- NOTE | 2023-03-17 18:30 | NUR ---
Patient in room CICU 2014. I have received report from Heather QUIROZ and had the opportunity to ask questions and assume patient care.
[2023-03-17] MEDS: sodium chloride 0.45% 1,000 ML IV SCH (21:56)
[2023-03-17] MEDS: nystatin 15 GM powder TP SCH (21:57)
[2023-03-17] MEDS: raloxifene 60mg tablet PO SCH (21:57)
[2023-03-17] MEDS: aspirin 81mg tab.chew PO SCH (21:57)
[2023-03-17 21:59] LABS: MEAN CORPUSCULAR HEMOGLOBIN 28.6 PG (27.0-31.0); MEAN CORPUSCULAR HGB CONC 32.7 g/dL (33.0-36.5); MEAN CORPUSCULAR VOLUME 87.5 FL (78-98); MEAN PLATELET VOLUME 7.9 FL (7.4-10.4); PLATELET COUNT 135 X10'3 (140-440); RED BLOOD COUNT 2.36 X10'6 (4.20-5.60); RED CELL DISTRIBUTION WIDTH 19.1 % (11.5-14.5); WHITE BLOOD COUNT 19.1 X10'3 (4.5-11.0)
[2023-03-17 22:08] LABS: HEMATOCRIT 20.6 % (35.0-45.0); HEMOGLOBIN 6.7 g/dl (12.0-16.0)
[2023-03-18] VITALS (32 sets, daily range): BP systolic 95–143; BP diastolic 37–62; PULSE 61–90; RESP 11–23; TEMP 98.8–99.1; O2SAT 93–99
[2023-03-18] MEDS: NORepinephrine 8mg/ 250ml NS 250 ML IV SCH ×3 (00:02→20:40)
[2023-03-18] MEDS: ceFAZolin/D5W- 1GM premix 50 ML IV SCH (00:53)
[2023-03-18] MEDS: amiodarone/D5 360MG/200ML BAG 200 ML IV SCH ×4 (03:51→21:48)
[2023-03-18 04:01] LABS: BASOPHILS % (AUTO) 0.1 % (0-1); EOSINOPHILS % (AUTO) 0 % (0-6); HEMATOCRIT 27.3 % (35.0-45.0); HEMOGLOBIN 9.3 g/dl (12.0-16.0); LYMPHOCYTES # (AUTO) 0.8 X10'3 (1.1-4.8); LYMPHOCYTES % (AUTO) 4.8 % (21-51); MEAN CORPUSCULAR HEMOGLOBIN 29.8 PG (27.0-31.0); MEAN CORPUSCULAR HGB CONC 34.2 g/dL (33.0-36.5); MEAN CORPUSCULAR VOLUME 87.1 FL (78-98); MEAN PLATELET VOLUME 7.8 FL (7.4-10.4); MONOCYTES # (AUTO) 1.3 X10'3 (0-0.9); MONOCYTES % (AUTO) 7.7 % (2-12); NEUTROPHILS % (AUTO) 87.4 % (42-75); PLATELET COUNT 108 X10'3 (140-440); RED BLOOD COUNT 3.13 X10'6 (4.20-5.60); RED CELL DISTRIBUTION WIDTH 17.2 % (11.5-14.5); WHITE BLOOD COUNT 17.1 X10'3 (4.5-11.0)
[2023-03-18 04:20] LABS: ANION GAP 8 (8-16); BLOOD UREA NITROGEN 17 MG/DL (7-18); BUN/CREATININE RATIO 14.3 (10.0-20.0); CREATININE 1.19 MG/DL (0.40-0.90); GLUCOSE 151 MG/DL (70-104); MAGNESIUM 2.1 MG/DL (1.5-2.4); PHOSPHORUS 3.7 MG/DL (2.3-4.5); POTASSIUM 4.6 MMOL/L (3.5-5.1); SODIUM 148 MMOL/L (135-145); TOTAL CARBON DIOXIDE 25.4 MMOL/L (24-32); eCRCL 27 ML/MIN; eGFR 43 ML/MIN
[2023-03-18 04:36] LABS: CHLORIDE 115 MMOL/L (99-107)
--- NOTE | 2023-03-18 06:51 | NUR ---
Problems reprioritized. Patient report given, questions answered & plan of care reviewed with John QUIROZ.
[2023-03-18] MEDS ORDERED: pantoprazole 40mg Tablet.DR PO SCH (07:30)
[2023-03-18] MEDS: metoprolol tartrate 12.5mg (1/2 tablet) PO SCH ×2 (08:00→21:47)
[2023-03-18] MEDS: sennosides/docusate sodium tablet PO SCH ×2 (08:24→20:38)
[2023-03-18] MEDS: gabapentin 300mg capsule PO SCH (08:24)
[2023-03-18] MEDS: pantoprazole 40mg Tablet.DR PO SCH (08:24)
[2023-03-18] MEDS: nystatin 15 GM powder TP SCH ×2 (08:24→20:38)
[2023-03-18] MEDS: mupirocin 2% nasal ointment 1gm UD NS SCH (08:24)
[2023-03-18] MEDS: oxybutynin 5mg tablet PO SCH (08:24)
[2023-03-18] MEDS: ferrous gluconate 324mg tablet PO SCH ×2 (08:24→20:38)
[2023-03-18] MEDS: atorvastatin 20mg tablet PO SCH (08:24)
[2023-03-18] MEDS: calcium carbonate 500mg tablet PO SCH (08:24)
[2023-03-18] MEDS: magnesium 2GM in 50ml NS 50 ML IV PRN (08:26)
[2023-03-18] MEDS: acetaminophen 325mg tablet PO PRN (09:52)
[2023-03-18] MEDS: nitroGLYCERIN-Tridil 50MG/D5W 250 ML IV SCH (11:20)
[2023-03-18] MEDS: propofol 1000mg/100ml bottle 100 ML IV SCH (11:34)
--- NOTE | 2023-03-18 15:23 | NUR ---
Patient with urine output trending down 20-30ml/hour; Dr. Chapman notified with orders for 250ml/5% Albumin. Also, patient noted to have occasional Junctional beats; backup epicardial pacemaker turned on to 40; occasional pacer spikes noted; MD aware.
[2023-03-18] MEDS: albumin (Human) 5% 250ml 250 ML IV PRN (15:37)
--- NOTE | 2023-03-18 18:30 | NUR ---
Patient in room CICU 2014. I have received report from MELLO QUIROZ and had the opportunity to ask questions and assume patient care.
--- NOTE | 2023-03-18 18:46 | NUR ---
Problems reprioritized. Patient report given, questions answered & plan of care reviewed with Laura QUIROZ.
[2023-03-18] MEDS: aspirin 81mg tab.chew PO SCH (20:38)
[2023-03-18] MEDS: raloxifene 60mg tablet PO SCH (20:38)
[2023-03-18] MEDS: HYDROcodone/acetaminophen 10/325mg tab PO PRN (20:39)
[2023-03-19] VITALS (28 sets, daily range): BP systolic 85–125; BP diastolic 40–60; PULSE 52–75; RESP 11–21; O2SAT 94–97
[2023-03-19] MEDS: amiodarone/D5 360MG/200ML BAG 200 ML IV SCH (03:51)
[2023-03-19] MEDS: HYDROcodone/acetaminophen 10/325mg tab PO PRN ×3 (05:02→21:42)
[2023-03-19 05:48] LABS: BASOPHILS % (AUTO) 0.1 % (0-1); EOSINOPHILS % (AUTO) 0.2 % (0-6); HEMATOCRIT 27.2 % (35.0-45.0); HEMOGLOBIN 9.1 g/dl (12.0-16.0); LYMPHOCYTES # (AUTO) 1.1 X10'3 (1.1-4.8); LYMPHOCYTES % (AUTO) 8.1 % (21-51); MEAN CORPUSCULAR HEMOGLOBIN 29.7 PG (27.0-31.0); MEAN CORPUSCULAR HGB CONC 33.5 g/dL (33.0-36.5); MEAN CORPUSCULAR VOLUME 88.7 FL (78-98); MEAN PLATELET VOLUME 8.4 FL (7.4-10.4); MONOCYTES # (AUTO) 0.9 X10'3 (0-0.9); MONOCYTES % (AUTO) 6.7 % (2-12); NEUTROPHILS # (AUTO) 11.2 X10'3 (1.8-7.7); NEUTROPHILS % (AUTO) 84.9 % (42-75); PLATELET COUNT 98 X10'3 (140-440); RED BLOOD COUNT 3.06 X10'6 (4.20-5.60); RED CELL DISTRIBUTION WIDTH 17.1 % (11.5-14.5); WHITE BLOOD COUNT 13.2 X10'3 (4.5-11.0)
[2023-03-19 05:52] LABS: ALBUMIN 2.7 G/DL (3.4-5.0); ANION GAP 8 (8-16); BLOOD UREA NITROGEN 18 MG/DL (7-18); BUN/CREATININE RATIO 18.9 (10.0-20.0); CALCIUM 7.2 MG/DL (8.5-10.1); CREATININE 0.95 MG/DL (0.40-0.90); GLUCOSE 121 MG/DL (70-104); MAGNESIUM 2.4 MG/DL (1.5-2.4); PHOSPHORUS 2.1 MG/DL (2.3-4.5); POTASSIUM 4.5 MMOL/L (3.5-5.1); SODIUM 144 MMOL/L (135-145); TOTAL CARBON DIOXIDE 24.1 MMOL/L (24-32); eCRCL 34 ML/MIN; eGFR 56 ML/MIN
[2023-03-19 05:53] LABS: CHLORIDE 112 MMOL/L (99-107)
--- NOTE | 2023-03-19 06:48 | NUR ---
Problems reprioritized. Patient report given, questions answered & plan of care reviewed with JENNIFER QUIROZ.
--- NOTE | 2023-03-19 06:51 | NUR ---
Patient in room CICU 2014. I have received report from RICHIE SHEIKH, and had the opportunity to ask questions and assume patient care.
[2023-03-19] MEDS ORDERED: amiodarone 200mg tablet PO SCH (08:00)
[2023-03-19] MEDS: oxybutynin 5mg tablet PO SCH (08:16)
[2023-03-19] MEDS: atorvastatin 20mg tablet PO SCH (08:17)
[2023-03-19] MEDS: ferrous gluconate 324mg tablet PO SCH ×2 (08:17→20:00)
[2023-03-19] MEDS: sennosides/docusate sodium tablet PO SCH ×2 (08:17→20:22)
[2023-03-19] MEDS: metoprolol tartrate 12.5mg (1/2 tablet) PO SCH ×2 (08:17→20:00)
[2023-03-19] MEDS: pantoprazole 40mg Tablet.DR PO SCH (08:17)
[2023-03-19] MEDS: nystatin 15 GM powder TP SCH ×2 (08:17→20:21)
[2023-03-19] MEDS: calcium carbonate 500mg tablet PO SCH (08:17)
[2023-03-19] MEDS ORDERED: furosemide 20 MG/2 ML vial IV ONE (10:30)
--- NOTE | 2023-03-19 12:34 | NUR ---
F/u 03/19: Pt post-op day 3 s/p CABGx2 per EMR. Pt seen by RD at bedside for written/verbal high protein/HH diet ed w/ RD contact information provided. Pt agreeable to peach vs strawberry Db smoothie BIDBD for wound healing; notified. Pt reports hx large hiatal hernia eats smaller more frequent meals at home though dose drink ~8oz diet coke/day but also fairlife protein drink daily at home. RD encouraged pt to contact dietitian's office if further nutrition questions/concerns. Rec: 1. advance to heart healthy diet as medically indicated 2. peach vs strawberry smoothie BIDBD for wound healing; pending physician verification in EMR Addendum: 03/19/23 at [address] Amended: Links added.
--- NOTE | 2023-03-19 14:00 | NUR ---
PT AMBULATED WITH NURSING FOR 20 FEET. PT REPORTED FEELING WEEK.
[2023-03-19] MEDS: NORepinephrine 8mg/ 250ml NS 250 ML IV SCH (14:08)
[2023-03-19] MEDS: JUVEN Smoothie Arginine/Glut./Ca2+Bmb (Juven 19.3pkt) 240ml cup PO SCH (17:30)
--- NOTE | 2023-03-19 18:25 | NUR ---
Problems reprioritized. Patient report given, questions answered & plan of care reviewed with RICHIE MARIE.
[2023-03-19] MEDS: amiodarone 200mg tablet PO SCH (20:22)
[2023-03-19] MEDS: aspirin 81mg tab.chew PO SCH (20:22)
[2023-03-19] MEDS: raloxifene 60mg tablet PO SCH (20:24)
[2023-03-20] VITALS (25 sets, daily range): BP systolic 90–151; BP diastolic 36–81; PULSE 52–97; RESP 12–22; O2SAT 91–99
[2023-03-20 03:44] LABS: BASOPHILS % (AUTO) 0.2 % (0-1); EOSINOPHILS # (AUTO) 0.1 X10'3 (0-0.9); EOSINOPHILS % (AUTO) 0.7 % (0-6); HEMATOCRIT 27.1 % (35.0-45.0); HEMOGLOBIN 9.1 g/dl (12.0-16.0); LYMPHOCYTES # (AUTO) 1.1 X10'3 (1.1-4.8); LYMPHOCYTES % (AUTO) 9.8 % (21-51); MEAN CORPUSCULAR HEMOGLOBIN 29.9 PG (27.0-31.0); MEAN CORPUSCULAR HGB CONC 33.6 g/dL (33.0-36.5); MEAN CORPUSCULAR VOLUME 88.9 FL (78-98); MEAN PLATELET VOLUME 8.6 FL (7.4-10.4); MONOCYTES # (AUTO) 0.8 X10'3 (0-0.9); MONOCYTES % (AUTO) 6.7 % (2-12); NEUTROPHILS # (AUTO) 9.5 X10'3 (1.8-7.7); NEUTROPHILS % (AUTO) 82.6 % (42-75); PLATELET COUNT 111 X10'3 (140-440); RED BLOOD COUNT 3.05 X10'6 (4.20-5.60); WHITE BLOOD COUNT 11.5 X10'3 (4.5-11.0)
[2023-03-20 03:45] LABS: ALBUMIN 2.6 G/DL (3.4-5.0); ANION GAP 3 (8-16); BLOOD UREA NITROGEN 20 MG/DL (7-18); BUN/CREATININE RATIO 21.5 (10.0-20.0); CALCIUM 7.1 MG/DL (8.5-10.1); CHLORIDE 110 MMOL/L (99-107); CREATININE 0.93 MG/DL (0.40-0.90); GLUCOSE 109 MG/DL (70-104); MAGNESIUM 2.2 MG/DL (1.5-2.4); PHOSPHORUS 1.9 MG/DL (2.3-4.5); SODIUM 142 MMOL/L (135-145); TOTAL CARBON DIOXIDE 28.7 MMOL/L (24-32); eCRCL 35 ML/MIN; eGFR 58 ML/MIN
[2023-03-20] MEDS: magnesium 2GM in 50ml NS 50 ML IV PRN (04:22)
[2023-03-20] MEDS: Neutra Phos packet PO PRN (04:22)
[2023-03-20] MEDS: NORepinephrine 8mg/ 250ml NS 250 ML IV SCH (06:30)
--- NOTE | 2023-03-20 07:04 | NUR ---
Patient in room CICU 2014. I have received report from [place] QUIROZ and had the opportunity to ask questions and assume patient care.
[2023-03-20] MEDS: JUVEN Smoothie Arginine/Glut./Ca2+Bmb (Juven 19.3pkt) 240ml cup PO SCH ×2 (07:30→17:46)
[2023-03-20 07:43] LABS: ABG BASE EXCESS -2.5 mmol/L (-2.0-2.0); ABG HCO3 21.5 mmol/L (22.0-26.0); ABG OXYGEN SATURATION 95.9 % (94-97); ABG PCO2 (T) 34.5 mmHg (32.0-45.0); ABG PH (T) 7.412 (7.350-7.450); ALLEN'S TEST POSITIVE; FCOHb 0.5 % (0.0-3.9); FHHb 4.1 % (0.0-5.0); FMetHb 0.1 % (0.0-1.5); FO2Hb 95.3 % (94-97); MODE ROOM AIR; TOTAL HEMOGLOBIN 13.1 G/dl (12.0-16.0)
[2023-03-20 07:46] LABS: ACT @ 1.70 U 301 SEC (193-297); ACT @ 2.84 U 454 SEC (260-420); BASELINE ACT 156 SEC (101-148); PATIENT WEIGHT 87.0k KG
[2023-03-20] MEDS: metoprolol tartrate 12.5mg (1/2 tablet) PO SCH ×2 (08:00→20:43)
[2023-03-20] MEDS: nystatin 15 GM powder TP SCH ×2 (08:00→20:44)
[2023-03-20 09:16] LABS: TOTAL HEMOGLOBIN 5.1 G/dl (12.0-16.0)
[2023-03-20] MEDS: pantoprazole 40mg Tablet.DR PO SCH (09:20)
[2023-03-20] MEDS: sennosides/docusate sodium tablet PO SCH ×2 (09:20→20:43)
[2023-03-20] MEDS: amiodarone 200mg tablet PO SCH ×2 (09:20→20:43)
[2023-03-20] MEDS: oxybutynin 5mg tablet PO SCH (09:20)
[2023-03-20] MEDS: ferrous gluconate 324mg tablet PO SCH ×2 (09:20→20:44)
[2023-03-20] MEDS: atorvastatin 20mg tablet PO SCH (09:20)
[2023-03-20] MEDS: calcium carbonate 500mg tablet PO SCH (09:20)
[2023-03-20] MEDS: HYDROcodone/acetaminophen 10/325mg tab PO PRN (09:27)
[2023-03-20] MEDS ORDERED: sodium phosphate inj. 15 MMOL in dextrose 5%-water 250 ML IV ONE (09:45)
[2023-03-20] MEDS: sodium chloride 0.45% 1,000 ML IV SCH (11:46)
[2023-03-20 13:10] LABS: ALANINE AMINOTRANSFERASE 22 U/L (12-78); ALBUMIN 2.9 G/DL (3.4-5.0); ALBUMIN/GLOBULIN RATIO 1.1 (1.1-1.5); ALKALINE PHOSPHATASE 36 IU/L (46-116); ANION GAP 6 (8-16); ASPARTATE AMINO TRANSFERASE 32 U/L (10-37); BILIRUBIN,TOTAL 1.1 MG/DL (0.1-1.0); BLOOD UREA NITROGEN 17 MG/DL (7-18); BUN/CREATININE RATIO 16.7 (10.0-20.0); CALCIUM 7.5 MG/DL (8.5-10.1); CHLORIDE 108 MMOL/L (99-107); CREATININE 1.02 MG/DL (0.40-0.90); GLUCOSE 111 MG/DL (70-104); MAGNESIUM 2.5 MG/DL (1.5-2.4); POTASSIUM 4.3 MMOL/L (3.5-5.1); SODIUM 140 MMOL/L (135-145); TOTAL CARBON DIOXIDE 25.7 MMOL/L (24-32); TOTAL PROTEIN 5.5 G/DL (6.4-8.2); eCRCL 32 ML/MIN; eGFR 52 ML/MIN
--- NOTE | 2023-03-20 18:35 | NUR ---
I have received report and assumed care of pt. Pt sitting in bed denies chest pain or discomfort. Rise and fall of chest cavity equile and symmetrical. Speech is clear, thought process clear, denies numbness and tingling. Assessment complete
[2023-03-20] MEDS: aspirin 81mg tab.chew PO SCH (20:46)
[2023-03-20] MEDS: raloxifene 60mg tablet PO SCH (20:46)
--- NOTE | 2023-03-20 20:55 | NUR ---
Hs cares complete. pt denies needs at this time. No s/sx of distress noted
[2023-03-21] VITALS (24 sets, daily range): BP systolic 90–139; BP diastolic 36–72; PULSE 62–84; RESP 14–20; O2SAT 89–97
[2023-03-21 02:29] LABS: BASOPHILS # (AUTO) 0.1 X10'3 (0-0.2); BASOPHILS % (AUTO) 0.6 % (0-1); EOSINOPHILS # (AUTO) 0.2 X10'3 (0-0.9); EOSINOPHILS % (AUTO) 1.6 % (0-6); HEMATOCRIT 27.3 % (35.0-45.0); HEMOGLOBIN 9.2 g/dl (12.0-16.0); LYMPHOCYTES # (AUTO) 1.1 X10'3 (1.1-4.8); LYMPHOCYTES % (AUTO) 11.4 % (21-51); MEAN CORPUSCULAR HEMOGLOBIN 30.3 PG (27.0-31.0); MEAN CORPUSCULAR HGB CONC 33.7 g/dL (33.0-36.5); MEAN PLATELET VOLUME 8.3 FL (7.4-10.4); MONOCYTES # (AUTO) 0.9 X10'3 (0-0.9); NEUTROPHILS # (AUTO) 7.6 X10'3 (1.8-7.7); NEUTROPHILS % (AUTO) 77.4 % (42-75); PLATELET COUNT 135 X10'3 (140-440); RED BLOOD COUNT 3.03 X10'6 (4.20-5.60); RED CELL DISTRIBUTION WIDTH 16.5 % (11.5-14.5); WHITE BLOOD COUNT 9.9 X10'3 (4.5-11.0)
[2023-03-21 02:46] LABS: ALANINE AMINOTRANSFERASE 19 U/L (12-78); ALBUMIN 2.3 G/DL (3.4-5.0); ALKALINE PHOSPHATASE 27 IU/L (46-116); ANION GAP 6 (8-16); ASPARTATE AMINO TRANSFERASE 27 U/L (10-37); BLOOD UREA NITROGEN 17 MG/DL (7-18); CALCIUM 7.8 MG/DL (8.5-10.1); CHLORIDE 110 MMOL/L (99-107); CREATININE 0.85 MG/DL (0.40-0.90); GLUCOSE 103 MG/DL (70-104); MAGNESIUM 2.1 MG/DL (1.5-2.4); PHOSPHORUS 1.9 MG/DL (2.3-4.5); POTASSIUM 4.2 MMOL/L (3.5-5.1); SODIUM 142 MMOL/L (135-145); TOTAL CARBON DIOXIDE 25.6 MMOL/L (24-32); TOTAL PROTEIN 4.7 G/DL (6.4-8.2); eCRCL 38 ML/MIN; eGFR 64 ML/MIN
[2023-03-21] MEDS ORDERED: fentaNYL/PF 50MCG/1 ML 2ML syringe ONE (06:11)
[2023-03-21] MEDS ORDERED: midazolam 1 mg/ML 2ml injection ONE ×2 (06:11→07:15)
[2023-03-21] MEDS ORDERED: LIDOcaine 1% 30ml preserv. free vial ONE (06:11)
--- NOTE | 2023-03-21 06:11 | NUR ---
report given to rec rn plan of care reviewed
[2023-03-21] MEDS ORDERED: heparin 1,000unit/ml 10ml vial 10 ML ONE ×2 (06:12→08:13)
[2023-03-21] MEDS ORDERED: iohexol 350 MG/ML 50ML vial IV ONE ×2 (06:12→08:21)
[2023-03-21] MEDS ORDERED: iohexol 350MG/ML 100ml bottle IV ONE (06:12)
--- NOTE | 2023-03-21 06:56 | NUR ---
Patient in room CICU 2006. I have received report from Logan QUIROZ and had the opportunity to ask questions and assume patient care.
[2023-03-21] MEDS: JUVEN Smoothie Arginine/Glut./Ca2+Bmb (Juven 19.3pkt) 240ml cup PO SCH ×2 (07:30→17:58)
[2023-03-21] MEDS: nystatin 15 GM powder TP SCH ×2 (08:00→20:58)
[2023-03-21] MEDS ORDERED: ticagrelor 90mg tablet ONE (08:27)
--- NOTE | 2023-03-21 09:36 | NUR ---
patient is complaining of shortness of breath states " i feel like i have phlem but it wont come up" called Dr. Aldridge [phone] no answer called Aminata [facility] [phone] informed her of patients new onset complaint, stated to order a chest xray and that she will come evaluate the patient no other new orders at this time
[2023-03-21] MEDS: ferrous gluconate 324mg tablet PO SCH ×2 (10:08→20:41)
[2023-03-21] MEDS: pantoprazole 40mg Tablet.DR PO SCH (10:08)
[2023-03-21] MEDS: oxybutynin 5mg tablet PO SCH (10:08)
[2023-03-21] MEDS: atorvastatin 20mg tablet PO SCH (10:08)
[2023-03-21] MEDS: sennosides/docusate sodium tablet PO SCH ×2 (10:08→20:42)
[2023-03-21] MEDS: metoprolol tartrate 12.5mg (1/2 tablet) PO SCH ×2 (10:08→20:42)
[2023-03-21] MEDS: calcium carbonate 500mg tablet PO SCH (10:09)
[2023-03-21] MEDS: amiodarone 200mg tablet PO SCH ×2 (10:09→20:42)
[2023-03-21] MEDS ORDERED: furosemide 40mg/4ml inj IV ONE (10:55)
[2023-03-21] MEDS ORDERED: sodium phosphate inj. 15 MMOL in dextrose 5%-water 250 ML IV ONE (11:25)
--- NOTE | 2023-03-21 11:51 | NUR ---
Initial: Pt admit for CAD, currently POD #5 s/p CABG x 2 and re-exploration and control of bleeding. Pt has been on a no concentrated sweets diet and documented with average 42% PO intake of meals meeting 79% estimated energy needs and 73% estimated protein needs. Pt receiving a Db smoothie BIDBD and documented with 50% PO intake of first ONS. Pt reported to RD that it's typical for her to eat smaller more frequent meals so current PO intake may not be too different from patient's normal eating habits. Pt documented to be NPO this morning for procedure/test. Per EMR LBM 03/15. D/w RN who reports pt with a moderate BM this morning which will be updated in EMR as time allows. No further nutrition intervention implemented at this time given NPO status. Will continue to follow and make recommendations as appropriate. Recommendations: 1. Continue no concentrated sweets diet 2. [place] vs strawberry smoothie BIDBD for wound healing; monitor need for additional ONS 3. Routine bowel care 4. Weekly scaled weights Addendum: 03/21/23 at [address] Amended: Links added.
--- NOTE | 2023-03-21 18:30 | NUR ---
I have received report and assumed care of pt. Pt sitting in bed eating dinner. Pt denies feelings of SOB or chest discomfort. Speech is clear thought process is clear as well. 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 Rt groin sight free of hematoma. Distal pulses palp bilat.
[2023-03-21] MEDS: aspirin 81mg tab.chew PO SCH (20:41)
[2023-03-21] MEDS: ticagrelor 90mg tablet PO SCH (20:42)
[2023-03-21] MEDS: raloxifene 60mg tablet PO SCH (20:42)
--- NOTE | 2023-03-21 21:23 | NUR ---
Hs cares complete, pt denies needs, report given to rec rn plan of care reviewed.
[2023-03-22] VITALS (18 sets, daily range): BP systolic 108–153; BP diastolic 46–67; PULSE 54–81; RESP 13–21; TEMP 98–98.2; O2SAT 93–98
--- NOTE | 2023-03-22 01:11 | NUR ---
received pt report back from prior rn no changes from earlier assessment
[2023-03-22 02:26] LABS: BASOPHILS % (AUTO) 0.3 % (0-1); EOSINOPHILS # (AUTO) 0.2 X10'3 (0-0.9); EOSINOPHILS % (AUTO) 1.9 % (0-6); HEMATOCRIT 26.1 % (35.0-45.0); HEMOGLOBIN 8.7 g/dl (12.0-16.0); LYMPHOCYTES % (AUTO) 9.8 % (21-51); MEAN CORPUSCULAR HEMOGLOBIN 30.1 PG (27.0-31.0); MEAN CORPUSCULAR HGB CONC 33.5 g/dL (33.0-36.5); MEAN CORPUSCULAR VOLUME 89.9 FL (78-98); MEAN PLATELET VOLUME 7.7 FL (7.4-10.4); MONOCYTES % (AUTO) 10.3 % (2-12); NEUTROPHILS # (AUTO) 7.6 X10'3 (1.8-7.7); NEUTROPHILS % (AUTO) 77.7 % (42-75); PLATELET COUNT 155 X10'3 (140-440); RED CELL DISTRIBUTION WIDTH 16.5 % (11.5-14.5); WHITE BLOOD COUNT 9.8 X10'3 (4.5-11.0)
[2023-03-22 02:43] LABS: ALBUMIN 2.1 G/DL (3.4-5.0); ANION GAP 6 (8-16); BLOOD UREA NITROGEN 15 MG/DL (7-18); BUN/CREATININE RATIO 16.5 (10.0-20.0); CALCIUM 7.8 MG/DL (8.5-10.1); CHLORIDE 109 MMOL/L (99-107); CREATININE 0.91 MG/DL (0.40-0.90); GLUCOSE 96 MG/DL (70-104); MAGNESIUM 1.8 MG/DL (1.5-2.4); PHOSPHORUS 2.9 MG/DL (2.3-4.5); POTASSIUM 3.5 MMOL/L (3.5-5.1); SODIUM 144 MMOL/L (135-145); TOTAL CARBON DIOXIDE 28.8 MMOL/L (24-32); eCRCL 35 ML/MIN; eGFR 59 ML/MIN
--- NOTE | 2023-03-22 06:00 | NUR ---
Patient in room CICU 2006. I have received report from EAMON RN and had the opportunity to ask questions and assume patient care.
--- NOTE | 2023-03-22 06:01 | NUR ---
report given to rec rn plan of care reviewed
[2023-03-22] MEDS: JUVEN Smoothie Arginine/Glut./Ca2+Bmb (Juven 19.3pkt) 240ml cup PO SCH ×2 (07:30→18:03)
[2023-03-22] MEDS: nystatin 15 GM powder TP SCH ×2 (08:00→20:28)
[2023-03-22] MEDS: calcium carbonate 500mg tablet PO SCH (09:11)
[2023-03-22] MEDS: sennosides/docusate sodium tablet PO SCH ×2 (09:11→20:00)
[2023-03-22] MEDS: amiodarone 200mg tablet PO SCH ×2 (09:11→20:24)
[2023-03-22] MEDS: atorvastatin 20mg tablet PO SCH (09:12)
[2023-03-22] MEDS: oxybutynin 5mg tablet PO SCH (09:12)
[2023-03-22] MEDS: ferrous gluconate 324mg tablet PO SCH ×2 (09:12→20:24)
[2023-03-22] MEDS: ticagrelor 90mg tablet PO SCH ×2 (09:12→20:24)
[2023-03-22] MEDS: aspirin 81mg tab.chew PO SCH (09:12)
[2023-03-22] MEDS: metoprolol tartrate 12.5mg (1/2 tablet) PO SCH ×2 (09:12→20:31)
[2023-03-22] MEDS: pantoprazole 40mg Tablet.DR PO SCH (09:13)
[2023-03-22] MEDS: sodium chloride 0.45% 1,000 ML IV SCH (11:20)
[2023-03-22] MEDS: acetaminophen 325mg tablet PO PRN (14:16)
--- NOTE | 2023-03-22 15:00 | NUR ---
Problems reprioritized. Patient report given, questions answered & plan of care reviewed with Penny QUIROZ, patient stable at transfer of care, D/C ching and D/C central line, cannula intact, placed pt on tele and sent to PCU.
--- NOTE | 2023-03-22 16:35 | NUR ---
PT MOVED FROM ICU TO PCU IN TELE BED, PT IS ALERT, ORIENTED X3, SKIN P/W/D, PACE MAKER WIRES STILL ATTACHED, PT IS ON 2 LITERS NASAL CANNULA, 93%, RR 16, HR 81, SR ON TELE BOX 5, PT HAS CALL LIGHT, PITCHER OF WATER, REPORT TO RUIZ QUIROZ. SURGICAL SITE TO CHEST IS HEALING WELL, NO DRAINAGE, NO REDNESS.
--- NOTE | 2023-03-22 18:30 | NUR ---
Problems reprioritized. Patient report given, questions answered & plan of care reviewed with RICHIE Pate.
[2023-03-22] MEDS: raloxifene 60mg tablet PO SCH (21:00)
[2023-03-22] MEDS: HYDROcodone/acetaminophen 10/325mg tab PO PRN (23:44)
[2023-03-23] VITALS (8 sets, daily range): BP systolic 118–154; BP diastolic 49–91; PULSE 53–78; RESP 16–22; TEMP 97.3–97.9; O2SAT 96–98
[2023-03-23] MEDS: JUVEN Smoothie Arginine/Glut./Ca2+Bmb (Juven 19.3pkt) 240ml cup PO SCH ×2 (07:30→17:57)
[2023-03-23 07:33] LABS: PHOSPHORUS 3.1 MG/DL (2.3-4.5); POTASSIUM 3.5 MMOL/L (3.5-5.1)
[2023-03-23] MEDS: metoprolol tartrate 12.5mg (1/2 tablet) PO SCH (08:00)
[2023-03-23] MEDS: atorvastatin 20mg tablet PO SCH (08:00)
[2023-03-23] MEDS: calcium carbonate 500mg tablet PO SCH (08:00)
[2023-03-23] MEDS: ferrous gluconate 324mg tablet PO SCH ×2 (08:00→21:23)
[2023-03-23] MEDS: ticagrelor 90mg tablet PO SCH ×2 (08:00→21:23)
[2023-03-23] MEDS: pantoprazole 40mg Tablet.DR PO SCH (08:00)
[2023-03-23] MEDS: oxybutynin 5mg tablet PO SCH (08:00)
[2023-03-23] MEDS: amiodarone 200mg tablet PO SCH (08:00)
[2023-03-23] MEDS: sennosides/docusate sodium tablet PO SCH ×2 (08:00→20:00)
[2023-03-23] MEDS: nystatin 15 GM powder TP SCH ×2 (08:01→20:00)
[2023-03-23] MEDS: HYDROcodone/acetaminophen 10/325mg tab PO PRN (10:33)
--- NOTE | 2023-03-23 18:47 | NUR ---
Problems reprioritized. Patient report given, questions answered & plan of care reviewed with Rio QUIROZ, patient still has the external pacer wires intact. Raul Verduzco came and isolated the wires. He said if the patients HR dips below 40 to plug the pacer back in and call ICU. Patient is stable at transfer of care
[2023-03-23] MEDS: raloxifene 60mg tablet PO SCH (21:23)
[2023-03-23] MEDS: aspirin 81mg tab.chew PO SCH (21:23)
[2023-03-24 02:00] VITALS: BP 131/40; PULSE 68; RESP 20; TEMP 97.1; O2SAT 98
[2023-03-24 06:00] VITALS: BP 126/46; PULSE 56; RESP 14; TEMP 97.7; O2SAT 96
[2023-03-24 06:41] LABS: TRIGLYCERIDES 105 MG/DL (20-135)
[2023-03-24] MEDS: JUVEN Smoothie Arginine/Glut./Ca2+Bmb (Juven 19.3pkt) 240ml cup PO SCH (07:30)
[2023-03-24 07:47] LABS: ALBUMIN 2.4 G/DL (3.4-5.0); ANION GAP 12 (8-16); BLOOD UREA NITROGEN 15 MG/DL (7-18); BUN/CREATININE RATIO 15.5 (10.0-20.0); CALCIUM 8.1 MG/DL (8.5-10.1); CHLORIDE 108 MMOL/L (99-107); CREATININE 0.97 MG/DL (0.40-0.90); GLUCOSE 108 MG/DL (70-104); MAGNESIUM 1.9 MG/DL (1.5-2.4); PHOSPHORUS 3.5 MG/DL (2.3-4.5); POTASSIUM 3.6 MMOL/L (3.5-5.1); SODIUM 143 MMOL/L (135-145); TOTAL CARBON DIOXIDE 23.5 MMOL/L (24-32); eCRCL 33 ML/MIN; eGFR 55 ML/MIN
[2023-03-24 08:00] VITALS: RESP 14
[2023-03-24] MEDS ORDERED: amiodarone 200mg tablet PO SCH (08:00)
--- NOTE | 2023-03-24 08:02 | NUR ---
Patient in room PCU 3014. I have received report from Geo QUIROZ and had the opportunity to ask questions and assume patient care.
[2023-03-24] MEDS: ferrous gluconate 324mg tablet PO SCH (08:24)
[2023-03-24] MEDS: ticagrelor 90mg tablet PO SCH (08:24)
[2023-03-24] MEDS: atorvastatin 20mg tablet PO SCH (08:24)
[2023-03-24] MEDS: calcium carbonate 500mg tablet PO SCH (08:24)
[2023-03-24] MEDS: pantoprazole 40mg Tablet.DR PO SCH (08:25)
[2023-03-24] MEDS: oxybutynin 5mg tablet PO SCH (08:25)
[2023-03-24] MEDS: sennosides/docusate sodium tablet PO SCH (08:25)
[2023-03-24] MEDS: nystatin 15 GM powder TP SCH (08:28)
[2023-03-24 09:35] LABS: BASOPHILS # (AUTO) 0.1 X10'3 (0-0.2); EOSINOPHILS # (AUTO) 0.2 X10'3 (0-0.9); EOSINOPHILS % (AUTO) 1.6 % (0-6); HEMATOCRIT 29.6 % (35.0-45.0); HEMOGLOBIN 9.8 g/dl (12.0-16.0); LYMPHOCYTES # (AUTO) 0.9 X10'3 (1.1-4.8); LYMPHOCYTES % (AUTO) 8.3 % (21-51); MEAN CORPUSCULAR HEMOGLOBIN 30.3 PG (27.0-31.0); MEAN CORPUSCULAR HGB CONC 33.2 g/dL (33.0-36.5); MEAN CORPUSCULAR VOLUME 91.1 FL (78-98); MEAN PLATELET VOLUME 7.6 FL (7.4-10.4); MONOCYTES # (AUTO) 0.8 X10'3 (0-0.9); MONOCYTES % (AUTO) 7.4 % (2-12); NEUTROPHILS # (AUTO) 8.6 X10'3 (1.8-7.7); NEUTROPHILS % (AUTO) 81.7 % (42-75); PLATELET COUNT 244 X10'3 (140-440); RED BLOOD COUNT 3.25 X10'6 (4.20-5.60); RED CELL DISTRIBUTION WIDTH 16.4 % (11.5-14.5); WHITE BLOOD COUNT 10.5 X10'3 (4.5-11.0)
[2023-03-24 11:00] VITALS: BP 126/61; PULSE 72; RESP 13; TEMP 98.1; O2SAT 95
--- NOTE | 2023-03-24 12:09 | NUR ---
Pt transferred to [facility] as per doctor's orders. Pt was unhooked from all IV and tele. Pt was picked up by transport staff from [employer]. All belongings were gathered and sent with patient. Pt was wheeled down by transport staff and left in transfer vehicle.
[2023-03-31] MEDS ORDERED: OXYB5TAB29 PO (02:27)
== END 2023-03-24 12:23 | DRG 231 ==
LOC: UNDOADMIN 05:31 → PAS IN 05:31 → CICU 2S 12:00 → PAS IN 12:00 → CICU 2S 03-20 09:06 → PCU 3S 03-22 16:30 → CICU 2S 03-22 16:30
PROVIDERS: ADMIT Thoracic Surgery (Cardiothoracic Vascular Surgery); ATTEND Thoracic Surgery (Cardiothoracic Vascular Surgery)
PROC: 021009W Bypass Coronary Artery, One Artery from Aorta with Autologous Venous Tissue, Open Approach (ICD-10-PCS; 2023-03-16)
PROC: 02100Z9 Bypass Coronary Artery, One Artery from Left Internal Mammary, Open Approach (ICD-10-PCS; 2023-03-16)
PROC: 06BQ4ZZ Excision of Left Saphenous Vein, Percutaneous Endoscopic Approach (ICD-10-PCS; 2023-03-16)
PROC: 02QA0ZZ Repair Heart, Open Approach (ICD-10-PCS; 2023-03-16)
PROC: 30233N1 Transfusion of Nonautologous Red Blood Cells into Peripheral Vein, Percutaneous Approach (ICD-10-PCS; 2023-03-16)
PROC: 30233K1 Transfusion of Nonautologous Frozen Plasma into Peripheral Vein, Percutaneous Approach (ICD-10-PCS; 2023-03-16)
PROC: 30233R1 Transfusion of Nonautologous Platelets into Peripheral Vein, Percutaneous Approach (ICD-10-PCS; 2023-03-16)
PROC: 5A1221Z Performance of Cardiac Output, Continuous (ICD-10-PCS; 2023-03-16)
PROC: 5A2204Z Restoration of Cardiac Rhythm, Single (ICD-10-PCS; 2023-03-17)
PROC: 4A023N7 Measurement of Cardiac Sampling and Pressure, Left Heart, Percutaneous Approach (ICD-10-PCS; principal; 2023-03-21)
PROC: 027034Z Dilation of Coronary Artery, One Artery with Drug-eluting Intraluminal Device, Percutaneous Approach (ICD-10-PCS; 2023-03-21)
PROC: 02F03ZZ Fragmentation in Coronary Artery, One Artery, Percutaneous Approach (ICD-10-PCS; 2023-03-21)
PROC: B2111ZZ Fluoroscopy of Multiple Coronary Arteries using Low Osmolar Contrast (ICD-10-PCS; 2023-03-21)
PROC: B221Z2Z Computerized Tomography (CT Scan) of Multiple Coronary Arteries using Intravascular Optical Coherence (ICD-10-PCS; 2023-03-21)
DX: I25.10 Atherosclerotic heart disease of native coronary artery without angina pectoris (principal); J96.01 Acute respiratory failure with hypoxia; I47.20 Ventricular tachycardia, unspecified; I31.4 Cardiac tamponade; D62 Acute posthemorrhagic anemia; Z68.41 Body mass index [BMI] 40.0-44.9, adult; I10 Essential (primary) hypertension; E11.9 Type 2 diabetes mellitus without complications; E66.9 Obesity, unspecified; E87.70 Fluid overload, unspecified; M81.0 Age-related osteoporosis without current pathological fracture; M25.561 Pain in right knee; R00.1 Bradycardia, unspecified; I48.91 Unspecified atrial fibrillation
CPT/HCPCS: 92950; 92978; 93312; 93325; C9600; 36415; 36430; 36600; 71045; 71046; 80048; 80053; 81003; 82330; 82435; 82803; 82947; 82948; 83036; 83735; 84100; 84132; 84295; 84478; 85008; 85018; 85025; 85027; 85347; 85384; 85610; 85730; 86885; 86900; 86901; 86920; 87081; 93005; 93880; 93970; 94002; 94003; 94010; 94664; 94668; 94760; 97110; 97116; 97161; 97530; 99152; 99153; A4333; A4615; A4618; A5200; A6258; A6402; A6449; A7000; A7048; A9900; C1725; C1751; C1753; C1760; C1761; C1769; C1874; C1892; C1894; G0378; J0171; J0282; J0690; J1100; J1610; J1644; J1815; J1940; J2060; J2150; J2250; J2270; J2370; J2405; J2704; J2720; J2930; J3010; J3370; J3475; J3480; J3490; J7030; J7040; J7050; J7060; J7120; P9016; P9035; P9045; P9047; P9059; Q9967; S0020